=== PATIENT | male | born 1980 | race Caucasian/White ===

== ENCOUNTER 2016-10-05 21:30 | Emergency (ER) | payer MEDICAID, OTHER ==
[2016-10-05 21:33] VITALS: BP 162/88; PULSE 87; TEMP 98.1
[2016-10-05 21:37] VITALS: BMI 34.1
--- NOTE | 2016-10-05 21:46 | EDPRACDOC ---
- General Information Chief Complaint: Toothache Stated Complaint: TOOTHACHE Time Seen by Provider: 10/05/16 21:35 Information Source: Patient Mode Of Arrival: Car Home Medications: Home Medications Amoxicillin Trihydrate [Amoxicillin] 500 mg PO TID #30 tab 10/05/16 Meloxicam [Mobic] 7.5 mg PO BID #20 tab 10/05/16 Allergies/Adverse Reactions: Allergies Allergy/AdvReac Type Severity Reaction Status Date / Time No Known Allergies Allergy Verified 02/04/16 06:33 - History of Present Illness Onset: tonight HPI: PT PRESENTS TODAY WITH TOOTH PAIN X 2 DAYS. HAS APPT IN A FEW WEEKS. NO FEVER. Reported Tooth Problem: 29, 3 Pain Severity: Reports: Moderate Relevant History of: Reports: None Modifying Factors: improves with: Cold, Chewing Associated Signs and Symptoms: Reports: None ED Past Medical History - History Reviewed Yes Nurses notes reviewed and agree except as marked - Social Medical History Smoking Status: Heavy tobacco smoker (5 or more cigarettes/day or daily pipe/ cigar) EDM Review of Systems - Review of Systems ROS Negative Except as Marked: Yes All systems reviewed and were negative except as marked Constitutional: No Symptoms Reported Eyes: No Symptoms Reported Ears: No Symptoms Reported Throat: No Symptoms Reported Nose: No Symptoms Reported Mouth: Tooth Pain Respiratory: No Symptoms Reported Cardiovascular: No Symptoms Reported Gastrointestinal: No Symptoms Reported Neurological: No Symptoms Reported Musculoskeletal: No Symptoms Reported Integumentary: No Symptoms Reported - Physical Exam Constitutional: Alert (Awake), No apparent distress Oriented to: Time, Person, Place Last recorded Vital Signs: Last Vital Signs Temp 98.1 F 10/05/16 21:32 Pulse 87 10/05/16 21:32 Resp 18 10/05/16 21:32 BP 162/88 10/05/16 21:32 Pulse Ox 96 10/05/16 21:32 Oxygen Pulse Oxygen Saturation 96 O2 Device Room Air Oxygen Flow Rate Fraction of Inspired Oxygen ( FIO2) - HEENT Head: Normal Eye Exam: Normal Oropharynx: Other (NOTED VARIOUS CAVITIES) Tympanic Membrane: Normal ENT EAC: Normal Nose: No Symptoms Reported Neck: Normal, Denies Pain, Midline - Respiratory/Cardiovascular Respiratory: Normal - CTA Cardiovascular: Normal - GI Palpation: Normal Tenderness: Non tender - Musculoskeletal Back: Normal Extremities: Normal - Integumentary Skin: Normal Lymphatics: Normal - Neurologic Mood Description: Normal Thought: Coherent ED Tooth Problem Exam - HEENT Face: Normal Teeth: Right: Molar-3 Upper (CAVITY), Molar-3 Lower (CAVITY) Gingiva: Normal Palate: Normal Mouth Range of Motion: Normal Sinuses: Normal Oropharynx: Normal Neck: Normal, Denies Pain, Midline Decision Time to Discharge: 21:46 - Departure Disposition: Home Condition: Good Final Diagnosis: Dental caries Instructions: Dental Caries (ED) Education/Counseling Given To: Patient Education/Counseling Given Regarding: Diagnosis, Treatment, Follow Up Referrals: None,No Provider [Primary Care Provider] - One Week [facility] [NonStaff] - One Week Prescriptions: New Amoxicillin Trihydrate [Amoxicillin] 500 mg PO TID #30 tab Meloxicam [Mobic] 7.5 mg PO BID #20 tab Additional Instructions: [facility] [phone]
[2016-10-05] MEDS ORDERED: KETOROLAC TROMETHAMINE 10 MG TAB PO ONE (21:48)
[2016-10-05] MEDS ORDERED: AMOXICILLIN 500 MG CAP PO ONE (21:49)
== END 2016-10-05 21:57 | disposition home or self-care (01) ==
LOC: ED 21:30 → EDMC 21:57
DX: K02.9 Dental caries, unspecified (principal)
CPT/HCPCS: 99282; J3490